=== PATIENT | female | born 2000 | race Caucasian/White ===

== ENCOUNTER 2020-09-21 10:17 | Emergency (ER) | payer OTHER ==
[2020-09-21 10:50] VITALS: TEMP 97.9
[2020-09-21] MEDS ORDERED: DIPH,PERTUS(ACELL)TETVAC-LF 0.5 ML VIAL IM ONE (11:19)
--- NOTE | 2020-09-21 11:19 | ED ---
Wound/Laceration HPI - General Chief Complaint: Wound/Laceration Stated Complaint: accidental wrist lac Time Seen by Provider: 09/21/20 10:54 Source: patient Mode of arrival: ambulatory Limitations: no limitations - History of Present Illness Initial Comments: 18-year-old female presents for chief complaint of left wrist laceration 1 hour prior to arrival. Patient has sustained a 2 mm puncture to left anterior wrist. Patient complains of tingling at the time. Patient was using a paring knife to cut chocolate slipped and slid into her wrist. There is no hematoma. No active bleeding. Patient has pain with flexion. Capillary refill less than 2 seconds, patient able to hold thumb and index finger together against resistance. Patient able to cross fingers and hold against opposition. -: hour(s) (1 hour [employer]) Extremity Location: Left: Wrist - Related Data Home Medications Medication Instructions Recorded Confirmed Dextroamphetamine/Amphetamine 15 mg PO BID 09/21/20 09/21/20 [Adderall] FLUoxetine HCL [PROzac] 20 mg PO DAILY 09/21/20 09/21/20 Allergies Allergy/AdvReac Type Severity Reaction Status Date / Time No Known Allergies Allergy Verified 09/21/20 12:13 Review of Systems ROS Statement: Those systems with pertinent positive or pertinent negative responses have been documented in the HPI. ROS Other: All systems not noted in ROS Statement are negative. Skin: Reports: as per HPI Past Medical History Past Medical History: No Reported History History of Any Multi-Drug Resistant Organisms: None Reported Additional Past Surgical History / Comment(s): varicose vein surgery Past Psychological History: Anxiety, Depression Smoking Status: Never smoker Past Alcohol Use History: None Reported Past Drug Use History: None Reported General Exam Limitations: no limitations Course Vital Signs 09/21/20 10:47 Temperature 97.9 F Pulse Rate 88 Respiratory 16 Rate Blood Pressure 122/86 O2 Sat by Pulse 100 Oximetry Medical Decision Making - Medical Decision Making approximately 2 mm puncture wound noted to the left anterior wrist irrigated and bacitracin dressing applied. Tetanus updated at this visit no evidence of tendon involvement or concern for fracture Disposition Clinical Impression: Puncture wound Disposition: HOME SELF-CARE Condition: Stable Instructions (If sedation given, give patient instructions): Puncture Wound (ED) Additional Instructions: Watch for signs and symptoms of infection including redness, drainage, pain, or fever. Directed to put bacitracin dressing and bandage twice a day. Motrin or Tylenol over the counter for pain as needed. Patient directed to follow up with PMD in 1 week as needed. Is patient prescribed a controlled substance at d/c from ED?: No Referrals: Lamont Callahan DO [Primary Care Provider] - 1-2 days Time of Disposition: 12:19
[2020-09-21 12:19] VITALS: BP 118/79; PULSE 74; RESP 18
== END 2020-09-21 12:26 | disposition home or self-care (01) ==
LOC: EC 10:17
DX: S61.532A Puncture wound without foreign body of left wrist, initial encounter (principal); F41.9 Anxiety disorder, unspecified; F32.9 Major depressive disorder, single episode, unspecified; Z79.899 Other long term (current) drug therapy; Z23 Encounter for immunization; W26.0XXA Contact with knife, initial encounter; Y93.89 Activity, other specified
CPT/HCPCS: 90471; 90715; 99282